=== PATIENT | male | born 1965 | race African-American/Black ===

== ENCOUNTER 2017-03-11 06:45 | Emergency (ER) | payer MEDICAID ==
[~2017-03-11] VITALS: Ht 182.9 cm; Wt 91.0 kg
[~2017-03-11 06:45] MED LIST: AMLO10TA4 PO; ASPI-518 PO; CARV6.2548 PO
[2017-03-11] MEDS ORDERED: KETOROLAC 30MG/ML VIAL IV STA (07:11)
[2017-03-11] MEDS ORDERED: ONDANSETRON HCL 4MG/2ML VIAL IV STA (07:11)
[2017-03-11] MEDS ORDERED: SODIUM CHLORIDE 0.9% 1,000 ML IV ONE (07:11)
[2017-03-11 07:29] LABS: BASOPHILS % 1.2 % (0.0-2.0); EOSINOPHILS % 5.5 % (0.0-5.0); HEMATOCRIT. 40.5 % (42.0-52.0); HEMOGLOBIN. 13.7 g/dL (14.0-18.0); LYMPHOCYTES % 41.5 % (20.0-50.0); MEAN CORPUSCULAR HEMOGLOBIN 32.6 pg (28.0-32.0); MONOCYTES % 13.8 % (2.0-8.0); PLATELET 161 x1000/uL (130-400); RED BLOOD CELL COUNT 4.21 mill/uL (4.7-6.1); RED CELL DISTRIBUTION WIDTH 13.1 % (11.6-14.6)
[2017-03-11 07:37] LABS: INR 1.1; PROTHROMBIN TIME 11.2 sec (9.4-11.6)
[2017-03-11 07:47] LABS: CARBON DIOXIDE 26 mEq/L (21-32); CHLORIDE 113 mEq/L (98-107); TROPONIN I 0.02 ng/mL (0.00-0.04)
[2017-03-11 09:30] VITALS: BP 154/98
== END 2017-03-11 10:08 | disposition home or self-care (01) ==
LOC: ER 06:45
DX: R07.9 Chest pain, unspecified (principal); R10.9 Unspecified abdominal pain; F17.200 Nicotine dependence, unspecified, uncomplicated; F12.10 Cannabis abuse, uncomplicated; Z79.82 Long term (current) use of aspirin; K57.30 Diverticulosis of large intestine without perforation or abscess without bleeding; I51.7 Cardiomegaly
CPT/HCPCS: 36415; 71010; 74176; 80053; 83690; 84484; 85025; 85610; 93005; 96361; 96374; 96375; 99285; J1885; J2405; J7030; Z7610

== ENCOUNTER 2017-07-17 07:13 | Emergency (ER) | payer MEDICAID ==
[~2017-07-17] VITALS: Ht 182.9 cm; Wt 91.0 kg
[2017-07-17 10:07] LABS: BASOPHILS % 0.9 % (0.0-2.0); EOSINOPHILS % 3.9 % (0.0-5.0); HEMOGLOBIN. 13.7 g/dL (14.0-18.0); LYMPHOCYTES % 41.5 % (20.0-50.0); MEAN CORPUSCULAR HEMOGLOBIN 32.6 pg (28.0-32.0); MEAN CORPUSCULAR VOLUME 97.5 fL (80.0-94.0); MEAN PLATELET VOLUME 8.3 fl (7.4-10.4); MONOCYTES % 14.2 % (2.0-8.0); NEUTROPHILS % 39.5 % (40.0-76.0); PLATELET 146 x1000/uL (130-400); RED BLOOD CELL COUNT 4.21 mill/uL (4.7-6.1); RED CELL DISTRIBUTION WIDTH 13.1 % (11.6-14.6)
[2017-07-17 10:19] LABS: D-DIMER 0.33 mg/L FEU (<0.50); INR 1.1; PARTIAL THROMBOPLASTIN TIME 30.5 sec (23.4-31.0); PROTHROMBIN TIME 11.4 sec (9.4-11.6)
[2017-07-17 10:20] LABS: CHLORIDE 110 mEq/L (98-107)
[2017-07-17 10:24] LABS: TROPONIN I < 0.02 ng/mL (0.00-0.04)
[2017-07-17 12:02] VITALS: BP 156/73
== END 2017-07-17 12:03 | disposition home or self-care (01) ==
LOC: ER 07:18
DX: M47.22 Other spondylosis with radiculopathy, cervical region (principal); J20.9 Acute bronchitis, unspecified; B34.9 Viral infection, unspecified; F17.200 Nicotine dependence, unspecified, uncomplicated; I10 Essential (primary) hypertension; F12.10 Cannabis abuse, uncomplicated; Z79.82 Long term (current) use of aspirin
CPT/HCPCS: 36415; 70450; 71045; 72125; 80053; 83880; 84484; 85025; 85379; 85610; 85730; 87804; 93005; 99285; J7040; Z7610

== ENCOUNTER 2019-02-10 06:27 | Emergency (ER) | payer MEDICAID ==
[~2019-02-10] VITALS: Ht 185.4 cm; Wt 86.0 kg
[~2019-02-10 06:27] MED LIST changes: -CARV6.2548 PO; +TRAM50TA3 PO
[2019-02-10] MEDS ORDERED: ONDANSETRON HCL 4MG/2ML INJ IV STA (07:10)
[2019-02-10] MEDS ORDERED: SODIUM CHLORIDE 0.9% 1,000 ML IV ONE (07:10)
[2019-02-10] MEDS ORDERED: MORPHINE SULFATE 4 MG/ML CPJ (NOT FOR IM USE) IV ONE (08:00)
[2019-02-10 08:20] LABS: BASOPHILS % 0.7 % (0.0-2.0); EOSINOPHILS % 0.1 % (0.0-5.0); HEMATOCRIT. 50.6 % (42.0-52.0); LYMPHOCYTES % 21.2 % (20.0-50.0); MEAN CORPUSCULAR HEMOGLOBIN 32.8 pg (28.0-32.0); MEAN CORPUSCULAR VOLUME 97.6 fL (80.0-94.0); MEAN PLATELET VOLUME 8.1 fl (7.4-10.4); MONOCYTES % 8.7 % (2.0-8.0); NEUTROPHILS % 69.3 % (40.0-76.0); PLATELET 175 x1000/uL (130-400); RED BLOOD CELL COUNT 5.19 mill/uL (4.7-6.1); RED CELL DISTRIBUTION WIDTH 12.6 % (11.6-14.6)
[2019-02-10 08:24] LABS: CHLORIDE 100 mEq/L (98-107)
[2019-02-10 08:34] LABS: INR 1.1; PROTHROMBIN TIME 11.7 sec (9.6-11.0)
[2019-02-10 08:44] LABS: ETHANOL BLOOD < 10 mg/dL
[2019-02-10 08:51] LABS: CLARITY URINE CLEAR (CLEAR); COLOR URINE YELLOW (YELLOW); KETONES URINE 1+ (NEGATIVE); LEUKOCYTE ESTERASE URINE NEGATIVE (NEGATIVE); NITRITE URINE NEGATIVE (NEGATIVE); OCCULT BLOOD URINE 1+ (NEGATIVE); PH URINE 5.5 (4.5-8.0); PROTEIN URINE 2+ (NEGATIVE); SPECIFIC GRAVITY URINE 1.024 (1.005-1.030); UROBILINOGEN URINE 0.2 E.U./dL (0.2-1.0)
[2019-02-10 09:52] VITALS: BP 179/114
[2019-02-10] MEDS ORDERED: AMLODIPINE 5MG TABLET PO ONE (10:15)
== END 2019-02-10 10:54 | disposition home or self-care (01) ==
LOC: ER 06:27
DX: R07.9 Chest pain, unspecified (principal); I25.2 Old myocardial infarction; I10 Essential (primary) hypertension; Z79.82 Long term (current) use of aspirin; Z86.19 Personal history of other infectious and parasitic diseases
CPT/HCPCS: 36415; 71045; 74176; 80053; 80320; 81003; 83605; 83690; 83880; 84484; 85025; 85610; 93005; 96361; 96374; 96375; 99284; J2270; J2405; J7030; G0480